=== PATIENT | female | born 1935 | race African-American/Black ===

== ENCOUNTER 2016-07-01 11:15 | Outpatient (CLI) | payer OTHER ==
[2016-03-17 17:13] VITALS: BP 179/45
== END 2016-07-01 11:16 ==
LOC: CARD 11:15
PROVIDERS: ATTEND Internal Medicine Cardiovascular Disease
DX: I25.10 Atherosclerotic heart disease of native coronary artery without angina pectoris (principal); I10 Essential (primary) hypertension
CPT/HCPCS: G0463

== ENCOUNTER 2017-02-24 10:55 | Outpatient (CLI) | payer OTHER ==
[2016-03-17 17:13] VITALS: BP 179/45
== END 2017-02-24 10:56 ==
LOC: CARD 10:55
PROVIDERS: ATTEND Internal Medicine Cardiovascular Disease
DX: I25.10 Atherosclerotic heart disease of native coronary artery without angina pectoris (principal); I10 Essential (primary) hypertension; E11.9 Type 2 diabetes mellitus without complications; E78.5 Hyperlipidemia, unspecified; E66.9 Obesity, unspecified
CPT/HCPCS: G0463

== ENCOUNTER 2017-11-24 11:35 | Outpatient (CLI) | payer OTHER ==
[2016-03-17 17:13] VITALS: BP 179/45
[2017-11-24 13:46] LABS: eGFR (African) > 60; eGFR (Non-African) > 60
== END 2017-11-24 11:36 ==
LOC: CARD 11:35
PROVIDERS: ATTEND Internal Medicine Cardiovascular Disease
DX: I25.10 Atherosclerotic heart disease of native coronary artery without angina pectoris (principal); I10 Essential (primary) hypertension; R01.1 Cardiac murmur, unspecified; E11.9 Type 2 diabetes mellitus without complications; E78.5 Hyperlipidemia, unspecified; E66.9 Obesity, unspecified
CPT/HCPCS: 36415; 80048; G0463

== ENCOUNTER 2018-02-09 09:30 | Outpatient (CLI) | payer OTHER ==
[2016-03-17 17:13] VITALS: BP 179/45
[2018-02-09 10:40] LABS: eGFR (Non-African) > 60
== END 2018-02-09 09:32 ==
LOC: LAB 09:30
PROVIDERS: ATTEND Internal Medicine Cardiovascular Disease
DX: I25.10 Atherosclerotic heart disease of native coronary artery without angina pectoris (principal)
CPT/HCPCS: 36415; 80048

== ENCOUNTER 2018-04-16 14:03 | Outpatient (CLI) | payer OTHER ==
[2016-03-17 17:13] VITALS: BP 179/45
== END 2018-04-16 14:04 ==
LOC: LABRHC 14:03
PROVIDERS: ATTEND Physician Assistant
DX: R30.0 Dysuria (principal)
CPT/HCPCS: 87086; 87186

== ENCOUNTER 2018-08-14 09:30 | Emergency (ER) | payer SELFPAY ==
[2018-08-14] MEDS ORDERED: methylPREDNISolone SOD SUCC 125 MG/2 ML VIAL IVP ONE (09:32)
[2018-08-14] MEDS ORDERED: IPRATROPIUM/ALBUTEROL SULFATE 3 ML AMPUL.NEB NEB ONE ×2 (09:32→10:52)
--- NOTE | 2018-08-14 09:50 | ED Physician Documentation ---
Dyspnea - HISTORIAN Historian: patient - HPI Stated Complaint: Shortness of breath Chief Complaint: Dyspnea Onset: days ago (3) Duration: continues in ED Initiating Event: upper respiratory illness Severity: moderate Exacerbated By: nothing Associated Symptoms: anxiety. denies: chest pain Further Comments: yes (she states the symtoms started two days ago with increased shortness of air. No fever. She has COPD. She did use her neb.) - ROS CONST: no problems MS/SKIN/LYMPH: none - PAST HX Lung Disease: COPD PE Risk Factors: hypertension Surgeries/Procedures: none Other History: none Immunizations: UTD Allergies/Adverse Reactions: Allergies Allergy/AdvReac Type Severity Reaction Status Date / Time Penicillins Allergy Verified 03/17/16 15:06 Home Medications: Ambulatory Orders Medication Instructions Recorded Albuterol Sulfate [Ventolin HFN] 1 each INH PRN PRN 03/17/16 Fluticasone/Vilanterol [Breo 1 puff INH BID 03/17/16 Ellipta 200-25 Mcg INH] Metformin HCl [Glucophage] 500 mg PO DAILY 03/17/16 - SOCIAL HX Smoking History: non-smoker Alcohol Use: none Drug Use: none - FAMILY HX Family History: none - VITAL SIGNS Vital Signs: Vital Signs Temp Pulse Resp BP Pulse Ox 98.4 F 99 H 26 H 196/95 98 08/14/18 09:31 08/14/18 09:31 08/14/18 09:31 08/14/18 09:31 08/14/18 09:31 - REVIEWED ASSESSMENTS Nursing Assessment Reviewed: Yes Vitals Reviewed: Yes Progress - Progress Progress: 1000: improved intake of air post neb. She is able to finish a sentence. States she is feeling better. DG 1100: audible wheezing. She states she is feeling much better. Discussed current results. DG 1130: reports she feels "so much better" she has some continued wheezing although improved. She reports she has oxygen at home DG 1202: Discussed case with Dr Mendoza. Offered admission to pt she would like to go home. She has oxygen at home and she has a nebulizer machine DG ED Results Lab/Radiology - Radiology Radiology Impressions: Portable chest History: Shortness of breath Findings: The lungs are clear. There is no pleural effusion. Heart size and pulmonary vascularity are normal. Aortic atherosclerosis is observed. Obesity limits evaluation of the lung bases. Impression: No acute abnormality. Exam limited by obesity. Electronically signed on Aug 14, 2018 10:09:49 AM SURGICAL MANAGER by: Raul Zhou - Orders Orders: ED Orders Category Date Time Status Assess pulse oximetry Q1H Care 08/14/18 09:32 Active IV Started NOW Care 08/14/18 09:33 Active CHEST 1VIEW [RAD] Stat Exams 08/14/18 Ordered CBC/PLATELET/DIFF Routine Lab 08/14/18 Ordered CMP Routine Lab 08/14/18 Ordered Ipratropium/Albuterol Sulfate [Duoneb] Med 08/14/18 09:32 Discontinued 3 ml NEB NOW ONE methylPREDNISolone SOD SUCC [Solu-MEDROL] Med 08/14/18 09:32 Discontinued 125 mg IVP NOW ONE EKG WITH COMPARISON Stat Ther 08/14/18 Ordered Dyspnea Physical Exam - EXAM General Appearance: alert, moderate distress EENT: eye inspection normal, no signs of dehydration Respiratory: respiratory distress, decreased air movement, wheezes CVS: reg. rate & rhythm, no murmur Abdomen: non-tender Skin: color nml Extremities: non-tender Neuro/Psych: oriented x3 Discharge Clincal Impression: Exacerbation of asthma Referrals: Jeffry Mendoza MD [Primary Care Provider] - 2 Days Comments: 1. Continue meds at home 2. prednisone 20 mg take 1 by mouth daily x 5 days 3. Ipratroprium/Albuterol - 1 vial in neb every 6 hours as needed for cough - may follow with Albuterol alone if needed in 10 min 4. Follow up with Dr Mendoza early in week 5. Return to ER for any concerns Condition: Stable Disposition: 01 HOME, SELF-CARE Decision to Admit: NO Date of Decison to Admit: 08/14/18 Decision Time: 12:06
[2018-08-14 10:13] LABS: BASOPHILS % 0.2 (0.0-1.5); EOSINOPHILS % 5.7 % (0.0-6.8); MEAN CORPUSCULAR HEMOGLOBIN 24.9 pg (28.0-34.0); MONOCYTES % 6.8 % (0.0-11.0); NEUTROPHILS # 4.5 # k/uL (1.4-7.7)
[2018-08-14 10:15] LABS: eGFR (Non-African) > 60
[2018-08-14] MEDS ORDERED: LISINOPRIL 5 MG TABLET PO ONE (10:54)
[2018-08-14 12:28] VITALS: BP 183/75
--- NOTE | 2018-08-14 18:24 | Diagnostic Imaging Report ---
NBA GARNER [facility] [address] [facility] [address] [place], [place]. [address] Report Submission Date: Aug 14, 2018 10:09:49 AM SIEVE REPAIRER Patient Study Name: LIZBETH EVANS Date: Aug 14, 2018 9:52:07 AM SIEVE REPAIRER Modality Type: DX Gender: F Description: CHEST 1VIEW : 33 Institution: [facility] Physician: NBA GARNER Portable chest History: Shortness of breath Findings: The lungs are clear. There is no pleural effusion. Heart size and pulmonary vascularity are normal. Aortic atherosclerosis is observed. Obesity limits evaluation of the lung bases. Impression: No acute abnormality. Exam limited by obesity. Electronically signed on Aug 14, 2018 10:09:49 AM SIEVE REPAIRER by: Raul MELGAR
== END 2018-08-14 12:28 | disposition home or self-care (01) ==
LOC: ED 09:30
DX: J45.901 Unspecified asthma with (acute) exacerbation (principal)
CPT/HCPCS: 36415; 71045; 80053; 85025; 93005; 94640; 96374; 99283; 99284; J2930; S1016

== ENCOUNTER 2018-11-03 09:45 | Outpatient (CLI) | payer OTHER ==
[2018-11-03 10:05] LABS: BASOPHILS % 0.4 % (0.0-1.5); EOSINOPHILS % 11.9 % (0.0-6.8); MEAN CORPUSCULAR HEMOGLOBIN 22.5 pg (28.0-34.0); MONOCYTES % 7.9 % (0.0-11.0); NEUTROPHILS # 5.1 # k/uL (1.4-7.7)
--- NOTE | 2018-11-04 00:28 | Diagnostic Imaging Report ---
TRACEE GALLO [facility] [address] [facility] [address] [place], [place]. [address] Report Submission Date: November 03, 2018 8:00:47 PM CDT Patient Study Name: LIZBETH EVANS Date: November 03, 2018 9:58:57 AM CDT Modality Type: DX Gender: F Description: ABD SERIES PA CHEST : 33 Institution: [facility] Physician: TRACEE GALLO Examination: Abdomen series History: EPIGASTRIC ABD PAIN X3 DAYS, PT STATES SOME NAUSEA Findings: 4 views obtained of the abdomen. No abnormal dilation of the large or small bowel. Moderate stool throughout the large bowel. No suspicious calcifications projecting over the renal fossa or the lower pelvic region. Pelvic phleboliths. Articular degenerative changes. Chronic interstitial changes. Likely right hilar granuloma. Impression: Moderate large bowel stool. No obstruction. No suspicious calcifications by plain film sensitivity. Chronic interstitial changes. No focal consolidation or effusion. Electronically signed on November 03, 2018 8:00:47 PM CDT by: Bonilla MELGAR
== END 2018-11-03 09:47 ==
LOC: LAB 09:45
PROVIDERS: ATTEND Family Medicine
DX: R10.13 Epigastric pain (principal)
CPT/HCPCS: 36415; 74022; 80053; 82150; 83690; 85025

== ENCOUNTER 2018-12-08 15:44 | Outpatient (CLI) | payer OTHER | END 2018-12-08 15:46 | LOC: LAB 15:44 | PROVIDERS: ATTEND Family Medicine | DX: D64.9 Anemia, unspecified (principal) | CPT/HCPCS: 82270 ==

== ENCOUNTER 2019-01-26 09:56 | Outpatient (CLI) | payer OTHER ==
[2019-01-26 10:42] LABS: MAGNESIUM 2.2 mIU/l (1.6-2.3); eGFR (Non-African) 40
== END 2019-01-26 09:58 ==
LOC: LAB 09:56
PROVIDERS: ATTEND Family Medicine
DX: G47.62 Sleep related leg cramps (principal)
CPT/HCPCS: 36415; 80048; 83735

== ENCOUNTER 2019-05-10 13:38 | Outpatient (CLI) | payer OTHER ==
--- NOTE | 2019-05-10 17:45 | Diagnostic Imaging Report ---
PATIENT MR#: [id number] PATIENT PATIENT NAME: LIZBETH EVANS DATE OF : 1935 REFERRING PHYSICIAN: Jeffry Mendoza EXAM DATE: 05/10/2019 ACCESSION NUMBER: [id number] EXAM DESCRIPTION: HAND 3 VIEWS OR MORE CLINICAL HISTORY: PAINFUL MOVEMENT OF RT THUMB, CATCHES UNABLE TO BEND. NO TRAUMA COMPARISON: No study for comparison is available at the time of interpretation. TECHNIQUE: DX right hand, 3 views Osseous structures: The osseous structures are normal with no evidence of acute fracture or dislocati on. 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 There is a partially detached osteophyte of the trapezium, which appears to produce ir regularity of the carpometacarpal articular surface. Soft tissues: There is atherosclerotic calcification of the peripheral arteries. 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 There is irregularity of the trapez ium at the lateral aspect of the 1st carpometacarpal articulation which may produce symptoms of catching. Read by: Dr. Lee Thomason Transcribed by: Lee Thomason Transcribed Date: 05/10/2019 5:44:13 PM Electronically signed by: Dr. Lee Thomason Date signed: 05/10/2019 5:44:48 PM
== END 2019-05-10 13:48 ==
LOC: RAD 13:38
PROVIDERS: ATTEND Family Medicine
DX: M79.644 Pain in right finger(s) (principal)
CPT/HCPCS: 73130